=== PATIENT | male | born 1950 | race Caucasian/White ===

== ENCOUNTER → 2025-03-26 09:12 | Outpatient (REF) | payer MEDICARE, SELFPAY | LOC: RCS 09:12 | PROVIDERS: ATTENDING PHYSICIAN Hospitalist | DX: R00.2 Palpitations (principal) | CPT/HCPCS: 93225; 93226 ==

== ENCOUNTER → 2025-04-25 09:11 | Outpatient (REF) | payer MEDICARE, SELFPAY | LOC: RCS 09:11 | PROVIDERS: ATTENDING PHYSICIAN Nuclear Medicine Nuclear Cardiology; FAMILY PHYSICIAN Internal Medicine | DX: Z01.810 Encounter for preprocedural cardiovascular examination (principal); I48.0 Paroxysmal atrial fibrillation; E78.5 Hyperlipidemia, unspecified | CPT/HCPCS: 93306 ==

== ENCOUNTER 2025-06-03 10:01 | Day surgery (SDC) | payer MEDICARE, SELFPAY ==
[2025-05-21 09:28] VITALS: BMI 25.1
[2025-05-21 09:28] LABS: Hematocrit 43.0 % (39.0-52.0); Hemoglobin 14.6 g/dL (13.0-18.0); Mean Corp Hgb Conc. 34.0 g/dL (33.0-37.0); Mean Corpuscular Volume 88.3 fL (80.0-94.0); Nucleated Red Blood Cells % 0 % (-); Platelet Count 183 10^3/uL (130-400); Red Cell Dist. Width 12.5 % (11.5-14.5)
[2025-05-21 09:33] LABS: INR 1.00; PT 13.5 Sec (11.4-14.6)
[2025-05-21 09:41] LABS: ALT (SGPT) 32 U/L (0-50); AST (SGOT) 28 U/L (17-59); Albumin 4.2 g/dl (3.5-5.0); Alkaline Phosphatase 55 U/L (38-126); Blood Urea Nitrogen 10 mg/dl (9-20); Calcium 9.2 mg/dl (8.4-10.2); Carbon Dioxide 30 mmol/L (22-30); Chloride 106 mmol/L (98-107); Estimated Creatinine Clearance 86 ml/min; Glucose 82 mg/dl (70-99); Magnesium 2.3 mg/dl (1.6-2.3); Potassium 3.8 mmol/L (3.5-5.1); Sodium 140 mmol/L (135-145); Total Protein 7.1 g/dl (6.3-8.2); eGFR > 60.00
[2025-06-03] VITALS (10 sets, daily range): BP systolic 115–144; BP diastolic 74–85; BMI 25.1
[2025-06-03 14:26] LABS: ACT-LR - POC 297 Seconds (116-155)
[2025-06-03 14:45] LABS: ACT-LR - POC 322 Seconds (116-155)
--- NOTE | 2025-06-03 15:31 | ITS.CL.ABL ---
Deployment Technician - Ablation
Ablation
Procedure Report:
ELECTROPHYSIOLOGIC STUDY AND POSSIBLE ABLATION
DATE: 06/03/25
Primary Care Provider: Dr. Will Brennan
Primary Apparel Sales Associate: Dr. Rizwan Salguero
INDICATION:
Symptomatic Atrial Fibrillation.
Paroxysmal
HISTORY: See H and P.
Symptomatic AF, poorly controlled with attempted medical therapy
HAS-BLED: 1
Age
CHADSVASc: 1 (but soon to be age 75 yrs increasing score to 2)
Age
PRESENTING RHYTHM: SR
HISTORY: See H and P.
Symptomatic AF, poorly controlled with attempted medical therapy.
'TIME-OUT': called and confirmed.
SEDATION/ANESTHESIA: provided via the anesthesia department using general anesthesia.
PROCEDURE:
Ultrasound Guidance with real-time visualization of needle insertion and vessel patency performed by id for femoral venous Vascular Access.
Under real-time US guidance, the needle was advanced with negative pressure into the vein. The needle was seen entering the vessel lumen with a good return of dark red flow, the syringe was removed, non-pulsatile, dark red blood low was noted and
the wire was passed without difficulty, then the needle was removed. US confirmed the wire was in the vein, not going into an artery,
Images were taken and saved for the patient's permanent record. Imaging findings typical femoral venous anatomy. Direct visualization of needle puncture into the femoral vein was observed and recorded.
3 sheaths were inserted into the right femoral vein.
10 Fr, 10Fr, 7 Fr. A 10fr sheath was then exchanged for the 16.8 Fr Faradrive deflectable sheath and dilator over a wire.
A decapolar CS catheter was positioned within the CS for mapping and pacing.
The intracardiac ultrasound catheter was positioned in the RA for continuous intracardiac ultrasound imaging.
Heparin bolus and infusion to target ACT at 300 -350 seconds was administered. Transseptal puncture was performed. This entailed advancing a sheath with dilator into the superior vena cava and withdrawing both (monitoring intracardiac ultrasound,
fluoroscopy and tip pressure) with the tip oriented toward the atrial septum. The fossa ovalis was engaged (indicated by sudden displacement of the sheath tip as well as tenting of the fossa seen on intracardiac ultrasound).
The FarapM:Metrics transseptal system utilizing VersaCross RF was used. Left atrial catheter position was confirmed by echocardiographic imaging and fluoroscopy followed by RF delivery using the Digital Vega system resulting in successful LA access with
pressure monitoring demonstrating LA pressure waveforms (LA mean pressure 6 mm Hg). The Faradrive sheath was advanced over the dilator and positioned in the left atrium.
The [employer] Grid multipolar mapping catheter was initially positioned through the transseptal sheath for high density mapping.
Geometry and voltage mapping was performed using the [employer] multipolar grid catheter. Ensite-X was utilized for three-dimensional electroanatomical mapping.
A 3-D map was created using Ensite-X in Voxel mode. A 3-D reconstructed CT image was compared to the 3-D Nave[employer] map to assist in anatomic evaluation, mapping and ablation.
The Far[employer]:Metrics PFA catheter and system was used for cardiac ablation. Catheter positioning was guided and confirmed using both I.C.E. and fluoroscopy.
Ablation strategy included PVI as well as mapping for extra PV contributors to atrial fibrillation which would also be targeted if present.
High density electroanatomical three-dimensional mapping demonstrated four PVs: LSPV, LIPV, RSPV, RIPV.
After accomplishing pulmonary venous isolation, mapping identified additional areas likely to be extra PV contributors to atrial fibrillation. These areas demonstrated patchy low voltage as well as complex fractionated electrograms. These areas can
be sites for the formation of rotors which can drive and maintain atrial fibrillation. These areas are known to be significant contributors to initiation and perpetuation of atrial fibrillation.
Additional energy applications/additional ablation sets targeted extra PV contributors to atrial fibrillation.
Targets for additional PFA ablation included:
LA posterior wall targeted with pulsed electric field energy isolating the posterior wall of the left atrium
After ablation of the posterior wall, additional targets were addressed:
LA inferior floor
These areas were ablated using pulsed electric field energy eliminating the extra PV contributors to atrial fibrillation.
Post ablation mapping finds entrance and exit block at each of the pulmonary veins four (LSPV, LIPV, RSPV, RIPV), the LA posterior wall and at the additional lines at Inferior/floor of the LA rendering the sites no longer able to contribute to
atrial fibrillation.
Programmed electrostimulation including burst atrial pacing as well the delivery of decremental extrastimuli down to atrial effective refractory period and no sustained arrhythmias could be induced.
I.C.E. :
Pre-Ablation Post-Ablation
LVEF: 55 % 55 %
WMA: none none
Pericardial effusion: trace posterior trace posterior
LA Pressure (mmHg) 6 11
COMPLICATIONS:
[employer]One
SUMMARY:
- Mapping and ablation to isolate the PVs resulting in electrical isolation of the pulmonary veins
- Additional AF ablation sets X 2 after PVI (LA posterior wall, Inf/floor of the LA posterior wall) resulting in elimination of the targeted extra PV contributors to atrial fibrillation.
- 3-D Electroanatomical Mapping
- Intracardiac Ultrasound
- Ultrasound guidance for vascular access
Post ablation, I discussed today's findings and results with the patient's , Nikki.
RECOMMENDATIONS:
- Observe in monitored bed.
- Initiate oral anticoagulation with apixaban 5 mg BID.
Stop ASA while on DOAC.
At his office visit, discuss maintaining apixaban given that he will be age 75 in July 2025 versus consideration for ILR implantation and monitoring for A-fib to allow discontinuation of DOAC
- Office visit with Dr Salguero is scheduled for July 30, 2025.
Copy to:
Primary Care Provider: Dr. Will Brennan
Primary Apparel Sales Associate: Dr. Rizwan Salguero
== END 2025-06-03 19:30 | disposition home or self-care (01) ==
LOC: CATH 10:01
PROVIDERS: ATTENDING PHYSICIAN Internal Medicine Cardiovascular Disease; FAMILY PHYSICIAN Internal Medicine; OTHER PHYSICIAN Nuclear Medicine Nuclear Cardiology
DX: I48.0 Paroxysmal atrial fibrillation (principal); Z79.01 Long term (current) use of anticoagulants; Z79.82 Long term (current) use of aspirin; I47.19 Other supraventricular tachycardia; Z98.890 Other specified postprocedural states
CPT/HCPCS: C1732; C1894; C1769; C1730; C1892; C1759; 36415; 75572; 80053; 83735; 85025; 85347; 85610; 86850; 86900; 86901; 93005; 93656; 93657; C1733; C1766; Q9967